=== PATIENT | male | born 1980 | race Caucasian/White ===

== ENCOUNTER 2017-04-25 12:11 | Emergency (ER) | payer BC ==
[2017-04-25 12:19] VITALS: BP 126/73
--- NOTE | 2017-04-25 12:43 | UC ---
Throat Pain/Nasal Dilan HPI - HPI Summary HPI Summary: worsening sore throat for 2 days, no fever, no nausea, no cough - History of Current Complaint Chief Complaint: UCRespiratory Stated Complaint: sore throat Time Seen by Provider: 04/25/17 12:41 Hx Obtained From: Patient Onset/Duration: Sudden Onset, Lasting Days - 2, Still Present Severity: Moderate Pain Intensity: 4 Pain Scale Used: 0-10 Numeric Cough: None Associated Signs & Symptoms: Positive: Negative - Allergies/Home Medications Allergies/Adverse Reactions: Allergies Allergy/AdvReac Type Severity Reaction Status Date / Time No Known Allergies Allergy Verified 12/04/14 12:12 PMH/Surg Hx/FS Hx/Imm Hx Previously Healthy: Yes - Surgical History Surgical History: None - Family History Known Family History: Positive: None Family History: no cardio vascular issues reported in family lineage - Social History Occupation: Employed Full-time Lives: With Family Alcohol Use: Weekly Substance Use Type: None Smoking Status (MU): Never Smoked Tobacco Have You Smoked in the Last Year: No Review of Systems Constitutional: Negative Skin: Negative Eyes: Negative ENT: Sore Throat Respiratory: Negative Cardiovascular: Negative Gastrointestinal: Negative Genitourinary: Negative Motor: Negative Neurovascular: Negative Musculoskeletal: Negative Neurological: Negative Psychological: Negative All Other Systems Reviewed And Are Negative: Yes Physical Exam Triage Information Reviewed: Yes Appearance: Well-Appearing, No Pain Distress, Well-Nourished Vital Signs: Initial Vital Signs Temp 98.4 F 04/25/17 12:15 Resp 16 04/25/17 12:15 BP 126/73 04/25/17 12:15 Pulse Ox 100 04/25/17 12:15 Vital Signs Reviewed: Yes Eye Exam: Normal Eyes: Positive: Conjunctiva Clear ENT Exam: Normal ENT: Positive: Normal ENT inspection, Hearing grossly normal, Pharyngeal erythema, TMs normal. Negative: Nasal congestion, Nasal drainage, Tonsillar swelling, Tonsillar exudate, Trismus, Muffled/hoarse voice Dental Exam: Normal Neck exam: Normal Neck: Positive: Supple, Nontender, No Lymphadenopathy Respiratory Exam: Normal Respiratory: Positive: Chest non-tender, Lungs clear, Normal breath sounds, No respiratory distress, No accessory muscle use Cardiovascular Exam: Normal Cardiovascular: Positive: RRR, No Murmur, Pulses Normal, Brisk Capillary Refill Abdominal Exam: Other Musculoskeletal Exam: Normal Musculoskeletal: Positive: Strength Intact, ROM Intact, No Edema Neurological Exam: Normal Neurological: Positive: Alert, Muscle Tone Normal Psychological Exam: Normal Skin Exam: Normal Diagnostics - Laboratory Diagnostic Studies Completed/Ordered: RST (+) Throat Pain/Nasal Course/Dx - Course Assessment/Plan: Amoxicillin, ibuprofen increase fluids rest follow with pcp prn - Differential Dx/Diagnosis Differential Diagnosis/HQI/PQRI: Influenza, Pharyngitis, URI Provider Diagnoses: Strep pharyngitis Discharge - Discharge Plan Condition: Stable Disposition: HOME Prescriptions: Amoxicillin CAP* [Amoxicillin 500 MG CAP*] 500 mg PO Q12H #20 cap Patient Education Materials: Strep Throat (GEN), Ibuprofen (By mouth), Amoxicillin (By mouth) Referrals: [facility] [facility] [Outside] - If Needed
== END 2017-04-25 13:06 | disposition home or self-care (01) ==
LOC: UCEAST 12:11
DX: J02.0 Streptococcal pharyngitis (principal)
CPT/HCPCS: 87651; 99212; G0463

== ENCOUNTER 2018-12-24 16:40 | Emergency (ER) | payer BC ==
[2018-12-24 17:18] VITALS: BP 136/81
--- NOTE | 2018-12-24 17:23 | UC ---
Respiratory Complaint HPI - HPI Summary HPI Summary: Cough congestion x 1 wk. sick contacts: yes flu shot: yes - History of Current Complaint Chief Complaint: UCGeneralIllness Stated Complaint: HEAD COLD Time Seen by Provider: 12/24/18 17:18 Hx Obtained From: Patient Pain Intensity: 1 Pain Scale Used: 0-10 Numeric Character: Cough: Nonproductive Aggravating Factors: Nothing Alleviating Factors: Nothing - Allergies/Home Medications Allergies/Adverse Reactions: Allergies Allergy/AdvReac Type Severity Reaction Status Date / Time No Known Allergies Allergy Verified 12/24/18 17:18 Home Medications: Home Medications Ibuprofen TAB* [Motrin TAB* 400 MG] 400 mg PO Q6H PRN 12/24/18 [History Confirmed 12/24/18] PMH/Surg Hx/FS Hx/Imm Hx Previously Healthy: Yes - Surgical History Surgical History: None - Family History Known Family History: Positive: None Family History: no cardio vascular issues reported in family lineage - Social History Alcohol Use: Weekly Alcohol Amount: 1-2 Substance Use Type: None Smoking Status (MU): Never Smoked Tobacco Have You Smoked in the Last Year: No Review of Systems All Other Systems Reviewed And Are Negative: Yes Constitutional: Negative: Fever, Chills, Fatigue Skin: Negative: Rash Eyes: Negative: Drainage, Eye Redness ENT: Positive: Dental Pain, Nasal Discharge, Sinus Congestion, Sinus Pain/ Tenderness. Negative: Sore Throat, Ear Ache Respiratory: Positive: Cough - occasional Cardiovascular: Positive: Negative Neurological: Negative: Headache Physical Exam Vital Signs: Initial Vital Signs Temp 99.8 F 12/24/18 17:15 Pulse 95 12/24/18 17:15 Resp 16 12/24/18 17:15 BP 136/81 12/24/18 17:15 Pulse Ox 98 12/24/18 17:15 Diagnostic Evaluation - Laboratory O2 Sat by Pulse Oximetry: 98 Respiratory Course/Dx - Course Course Of Treatment: sinus congestion and R sided facial pain x 1 wk. Denied fever. suspect viral etiology but will cover for bacterial source. Vitals good , pt. stable. - Differential Dx/Diagnosis Differential Diagnosis/HQI/PQRI: Bronchitis, Sinusitis Provider Diagnosis: Sinusitis Discharge - Sign-Out/Discharge Documenting (check all that apply): Patient Departure All imaging exams completed and their final reports reviewed: No Studies - Discharge Plan Condition: Good Disposition: HOME Prescriptions: Amoxicillin/Clavulanate TAB* [Augmentin TAB 500 mg*] 500 mg PO BID 5 Days #10 tab Patient Education Materials: Sinusitis (ED) Referrals: Rayne Page MD [Primary Care Provider] - Additional Instructions: follow up with pcp if not improving. - Billing Disposition and Condition Condition: GOOD Disposition: Home
== END 2018-12-24 17:45 | disposition home or self-care (01) ==
LOC: UCEAST 16:40
DX: J32.9 Chronic sinusitis, unspecified (principal)
CPT/HCPCS: 99212; G0463

== ENCOUNTER 2019-04-11 13:06 | Emergency (ER) | payer BC ==
[2019-04-11 13:14] VITALS: BP 129/80
--- NOTE | 2019-04-11 13:16 | UC ---
Skin Complaint HPI - HPI Summary HPI Summary: 38 yo male presents with tick bite to left upper thigh first noticed this morning. He removed the tick and says it was rather big. He is unsure how long at it was attached, but says he thinks it may have been about 2 days. Slight itch to the area. - History of Current Complaint Chief Complaint: UCSkin Time Seen by Provider: 04/11/19 13:16 Stated Complaint: TICKBITE UPPERLT THIGH Hx Obtained From: Patient Onset/Duration: Sudden Onset Current Severity: None Pain Intensity: 0 - Allergy/Home Medications Allergies/Adverse Reactions: Allergies Allergy/AdvReac Type Severity Reaction Status Date / Time No Known Allergies Allergy Verified 04/11/19 13:14 Home Medications: Home Medications NK [No Home Medications Reported] 04/11/19 [History Confirmed 04/11/19] PMH/Surg Hx/FS Hx/Imm Hx - Additional Past Medical History Additional PMH: None - Surgical History Surgical History: None - Family History Known Family History: Positive: None Family History: no cardio vascular issues reported in family lineage - Social History Occupation: Employed Full-time Lives: With Family Alcohol Use: Weekly Alcohol Amount: 1-2 Substance Use Type: None Smoking Status (MU): Never Smoked Tobacco Have You Smoked in the Last Year: No Review of Systems All Other Systems Reviewed And Are Negative: Yes Constitutional: Positive: Negative Skin: Positive: Other - Tick bite Respiratory: Positive: Negative Cardiovascular: Positive: Negative Neurovascular: Positive: Negative Neurological: Positive: Negative Psychological: Positive: Negative Physical Exam - Summary Physical Exam Summary: GENERAL: NAD. WDWN. No pain distress. SKIN: LEFT UPPER THIGH: Medial aspect there is a 5mm diameter of mild erythema and edema with central 1mm area of superficial skin loss. No streaking, bleeding , or drainage. NECK: Supple. Nontender. No lymphadenopathy. CHEST: No accessory muscle use. Breathing comfortably and in no distress. CV: Pulses intact. Cap refill <2seconds NEURO: Alert. PSYCH: Age appropriate behavior. Triage Information Reviewed: Yes Vital Signs: Initial Vital Signs Temp 97.8 F 04/11/19 13:11 Pulse 83 04/11/19 13:11 Resp 16 04/11/19 13:11 BP 129/80 04/11/19 13:11 Pulse Ox 98 04/11/19 13:11 Vital Signs Reviewed: Yes Course/Dx - Course Course Of Treatment: Area consistent with tick bite. No sign of infection. Treated with 200mg doxycycline at visit today given that he believes tick was attached around 48 hours. - Diagnoses Provider Diagnosis: Tick bite Discharge - Sign-Out/Discharge Documenting (check all that apply): Patient Departure All imaging exams completed and their final reports reviewed: No Studies - Discharge Plan Condition: Stable Disposition: HOME Patient Education Materials: Lyme Disease (ED), Tick Bite (ED) Referrals: Rayne Page MD [Primary Care Provider] - Additional Instructions: TICK BITE: You have been bitten by a tick. Once the tick is removed, these "bites" usually cause no problems. Tick fever, tick paralysis, Grapevine Spotted fever, and Lyme disease are uncommon -- but you should mention this tick bite to your doctor if you develop unusual symptoms in the next several weeks. If you develop any of the following, please see your physician promptly: (1) Fever, chills, or generalized malaise associated with a headache. (2) A red round area at the site of the bite (or elsewhere) (3) Joint pain, joint swelling or generalized weakness. (4) Redness, swelling, or drainage at the site of the bite. - Billing Disposition and Condition Condition: STABLE Disposition: Home - Attestation Statements Provider Attestation: I was available for consult. This patient was seen by the NELDA. The patient was not presented to, seen by, or examined by me. -Fabian
[2019-04-11] MEDS ORDERED: DOXYcycline CAP(*) 100 MG PO ONE (13:19)
== END 2019-04-11 13:26 | disposition home or self-care (01) ==
LOC: UCEAST 13:06
DX: S70.362A Insect bite (nonvenomous), left thigh, initial encounter (principal); W57.XXXA Bitten or stung by nonvenomous insect and other nonvenomous arthropods, initial encounter; Y92.9 Unspecified place or not applicable
CPT/HCPCS: 99212; A9270-GY; G0463